=== PATIENT | female | born 1995 | race Hispanic/Latino ===

== ENCOUNTER 2022-10-20 21:45 | Emergency (ER) | payer SELFPAY ==
[2022-10-20] VITALS (7 sets, daily range): BP systolic 87–117; BP diastolic 52–84
[2022-10-20] MEDS ORDERED: VOLTAREN75 MG PO (23:22)
== END 2022-10-20 23:52 | disposition home or self-care (01) | DRG 556 ==
LOC: ED 21:45
DX: M25.551 Pain in right hip (principal); M25.561 Pain in right knee; M79.651 Pain in right thigh

== ENCOUNTER 2022-12-10 17:18 | Emergency (ER) | payer OTHER ==
[~2022-12-10] VITALS: Ht 154.9 cm; Wt 69.1 kg
[~2022-12-10 17:18] MED LIST: VOLTAREN75 MG PO
[2022-12-10 18:46] VITALS: BP 107/54
== END 2022-12-10 18:46 | disposition home or self-care (01) | DRG 935 ==
LOC: ED 17:18
DX: T23.162A Burn of first degree of back of left hand, initial encounter (principal); X10.2XXA Contact with fats and cooking oils, initial encounter

== ENCOUNTER 2023-04-12 00:10 | Emergency (ER) | payer OTHER ==
[~2023-04-12] VITALS: Ht 154.9 cm; Wt 71.2 kg
[2023-04-12 00:19] VITALS: BP 111/78
[2023-04-12] MEDS ORDERED: PARAGARD IU (00:28)
[2023-04-12 00:30] VITALS: BP 101/66
[2023-04-12] MEDS ORDERED: MEDDOSEPAK PO (00:31)
[2023-04-12 00:45] VITALS: BP 102/75
[2023-04-12 01:00] VITALS: BP 104/66
== END 2023-04-12 01:06 | disposition home or self-care (01) ==
LOC: ED 00:10
DX: S60.561A Insect bite (nonvenomous) of right hand, initial encounter (principal); W57.XXXA Bitten or stung by nonvenomous insect and other nonvenomous arthropods, initial encounter

== ENCOUNTER 2023-05-26 00:28 | Emergency (ER) | payer OTHER ==
[~2023-05-26] VITALS: Ht 154.9 cm; Wt 80.0 kg
[~2023-05-26 00:28] MED LIST changes: +MEDDOSEPAK PO; +PARAGARD IU
[2023-05-26 01:01] VITALS: BP 107/73
[2023-05-26 01:15] LABS: URINE BILIRUBIN - DIPSTICK NEGATIVE (NEGATIVE); URINE BLOOD DIPSTICK TRACE-INTACT (NEGATIVE); URINE COLOR YELLOW; URINE GLUCOSE - DIPSTICK 100 mg/dL (NEGATIVE); URINE KETONE NEGATIVE (NEGATIVE); URINE LEUK ESTERASE NEGATIVE (NEGATIVE); URINE PROTEIN - DIPSTICK NEGATIVE (NEG-TRACE); URINE SPECIFIC GRAVITY <=1.005; URINE UROBILINOGEN - DIPSTICK 0.2 E.U./dL (0.2)
[2023-05-26 01:21] LABS: URINE NITRITE - DIPSTICK NEGATIVE (Negative)
== END 2023-05-26 01:10 | disposition left against medical advice (07) ==
LOC: ED 00:28
PROVIDERS: Emergency Medicine
DX: F41.9 Anxiety disorder, unspecified (principal); F17.200 Nicotine dependence, unspecified, uncomplicated; Z53.29 Procedure and treatment not carried out because of patient's decision for other reasons

== ENCOUNTER 2023-08-01 18:20 | Emergency (ER) | payer OTHER ==
[~2023-08-01] VITALS: Ht 154.9 cm; Wt 80.0 kg
[2023-08-01 19:49] LABS: URINE BILIRUBIN - DIPSTICK Negative (NEGATIVE); URINE BLOOD DIPSTICK Negative (NEGATIVE); URINE COLOR Yellow; URINE GLUCOSE - DIPSTICK Negative (NEGATIVE); URINE KETONE Negative (NEGATIVE); URINE LEUK ESTERASE Negative (NEGATIVE); URINE NITRITE - DIPSTICK Negative (Negative); URINE PH 6.5 (4.5-8.0); URINE PROTEIN - DIPSTICK Negative (NEG-TRACE); URINE UROBILINOGEN - DIPSTICK 0.2 E.U./dL (0.2)
[2023-08-01] MEDS ORDERED: CLARITIN10 M2 PO (20:34)
[2023-08-01] MEDS ORDERED: KEFLEX500 MG PO (20:34)
[2023-08-01] MEDS ORDERED: ROBITUSSIN AC10 ML PO (20:34)
[2023-08-01 20:50] VITALS: BP 111/76
== END 2023-08-01 20:47 | disposition home or self-care (01) ==
LOC: ED 18:20
PROVIDERS: Emergency Medicine
DX: J06.9 Acute upper respiratory infection, unspecified (principal); F17.200 Nicotine dependence, unspecified, uncomplicated; Z20.822 Contact with and (suspected) exposure to COVID-19

== ENCOUNTER 2023-08-08 14:41 | Emergency (ER) | payer SELFPAY ==
[~2023-08-08] VITALS: Ht 154.9 cm; Wt 80.7 kg
[~2023-08-08 14:41] MED LIST changes: +CLARITIN10 M2 PO; +KEFLEX500 MG PO; +ROBITUSSIN AC10 ML PO
[2023-08-08] MEDS ORDERED: PROAIR HFA IN (17:21)
[2023-08-08] MEDS ORDERED: ZPAK PO (17:21)
[2023-08-08 18:25] VITALS: BP 104/72
== END 2023-08-08 18:26 | disposition home or self-care (01) | DRG 153 ==
LOC: ED 14:41
DX: J06.9 Acute upper respiratory infection, unspecified (principal); F17.200 Nicotine dependence, unspecified, uncomplicated